=== PATIENT | female | born 1990 | race Caucasian/White ===

== ENCOUNTER 2022-10-08 15:32 | Emergency (ER) | payer BC ==
[2022-10-08] MEDS ORDERED: LIDOCAINE 2%-EPI 1:100,000 20 ML VIAL SQ STA (16:53)
[2022-10-08] MEDS ORDERED: DIPH,PERTUS(ACELL)TETVAC-LF 0.5 ML VIAL IM ONE (16:53)
--- NOTE | 2022-10-08 18:13 | ED ---
General Adult HPI - General Chief complaint: Wound/Laceration Stated complaint: Right Leg Laceration Time Seen by Provider: 10/08/22 16:38 Source: patient, RN notes reviewed Mode of arrival: ambulatory Limitations: no limitations - History of Present Illness Initial comments: 32 year old female presents to the emergency department with chief complaint of right thigh laceration. She states that she fell today on the fire pit in her backyard. She states that she has been able to bear weight on her right leg appropriately. She does no know when her last tetanus shot was. She denies numbness, tingling in extremity. - Related Data Previous Rx's Medication Instructions Recorded Ibuprofen [Motrin] 600 mg PO Q6HR PRN #40 day 09/02/15 Cephalexin [Keflex] 500 mg PO Q6HR #28 cap 10/08/22 Ibuprofen [Motrin] 800 mg PO Q8HR #30 tab 10/08/22 Allergies Allergy/AdvReac Type Severity Reaction Status Date / Time No Known Allergies Allergy Verified 10/08/22 15:36 Review of Systems ROS Statement: Those systems with pertinent positive or pertinent negative responses have been documented in the HPI. ROS Other: All systems not noted in ROS Statement are negative. Past Medical History Past Medical History: No Reported History History of Any Multi-Drug Resistant Organisms: None Reported Additional Past Surgical History / Comment(s): left hand Past Psychological History: No Psychological Hx Reported Smoking Status: Vaper Past Alcohol Use History: Occasional Past Drug Use History: None Reported General Exam Limitations: no limitations General appearance: alert, in no apparent distress Head exam: Present: atraumatic, normocephalic, normal inspection Eye exam: Present: normal appearance, PERRL, EOMI. Absent: scleral icterus, conjunctival injection, periorbital swelling ENT exam: Present: normal exam, mucous membranes moist Neck exam: Present: normal inspection. Absent: tenderness, meningismus, lymphadenopathy Respiratory exam: Present: normal lung sounds bilaterally. Absent: respiratory distress, wheezes, rales, rhonchi, stridor Cardiovascular Exam: Present: regular rate, normal rhythm, normal heart sounds. Absent: systolic murmur, diastolic murmur, rubs, gallop, clicks Extremities exam: Present: full ROM, normal capillary refill, other (laceration to right thigh ). Absent: tenderness, pedal edema, joint swelling, calf tenderness Back exam: Present: normal inspection Neurological exam: Present: alert, oriented X3 Psychiatric exam: Present: normal affect, normal mood Skin exam: Present: warm, dry, normal color, other (laceration to right thigh ). Absent: rash Course Vital Signs 10/08/22 10/08/22 15:34 18:39 Temperature 98.4 F 98 F Pulse Rate 118 H 90 Respiratory 22 18 Rate Blood Pressure 129/68 122/80 O2 Sat by Pulse 96 100 Oximetry Procedures - Laceration Laceration #1 Consent Obtained: verbal consent Indication: laceration Site: lower extremity Size (cm): 5 Description: linear Depth: simple, single layer Anesthetic Used: lidocaine 2%, with epi Anesthesia Technique: local infiltration Pre-repair: wound explored, irrigated extensively Type of Sutures: vicryl, other (monofilament) Size of Sutures: 5-0 Number of Sutures: 11 Technique: simple, interrupted Patient Tolerated Procedure: well, no complications Laceration #2 Consent Obtained: verbal consent Indication: laceration Size (cm): 1 Description: linear Depth: simple, single layer Anesthetic Used: lidocaine 2%, with epi Anesthesia Technique: local infiltration Pre-repair: wound explored, irrigated extensively Type of Sutures: vicryl, other Size of Sutures: 5-0 Number of Sutures: 2 Technique: simple, interrupted Patient Tolerated Procedure: well, no complications Medical Decision Making - Medical Decision Making Was pt. sent in by a medical professional or institution ([facility], [facility], urgent c are, hospital, or long-term...) When possible be specific @ -No Did you speak to anyone other than the patient for history (EMS, parent, family, police, friend...)? What history was obtained from this source @ -No Did you review nursing and triage notes (agree or disagree)? Why? @ -I reviewed and agree with nursing and triage notes Were old charts reviewed (outside hosp., previous admission, EMS record, old EKG, old radiological studies, urgent care reports/EKG's, long-term records)? Report findings @ -No old charts were reviewed Differential Diagnosis (chest pain, altered mental status, abdominal pain women, abdominal pain men, vaginal bleeding, weakness, fever, dyspnea, syncope, headache, dizziness, GI bleed, back pain, seizure, CVA, palpatations, mental health, musculoskeletal)? @ -laceration, abrasion, foreign body, fracture, this list is not all-inclusive EKG interpreted by me (3pts min.). @ -none X-rays interpreted by me (1pt min.). @ -None done CT interpreted by me (1pt min.). @ -None done U/S interpreted by me (1pt. min.). @ -None done What testing was considered but not performed or refused? (CT, X-rays, U/S, labs)? Why? @ -None What meds were considered but not given or refused? Why? @ -None Did you discuss the management of the patient with other professionals (professionals i.e. , PA, [facility], lab, RT, psych nurse, social studies department chair, transportation solutions manager, t eacher, dispatch officer, lining caser)? Give summary @ -No Was smoking cessation discussed for >3mins.? @ -No Was critical care preformed (if so, how long)? @ -No Were there social determinants of health that impacted care today? How? (Homelessness, low income, unemployed, alcoholism, drug addiction, transportation, low edu. Level, literacy, decrease access to med. care, longterm, rehab)? @ -No Was there de-escalation of care discussed even if they declined (Discuss DNR or withdrawal of care, Hospice)? DNR status @ -No What co-morbidities impacted this encounter? (DM, HTN, Smoking, COPD, CAD, Cancer, CVA, ARF, Chemo, Hep., AIDS, mental health diagnosis, sleep apnea, morbid obesity)? @ -None Was patient admitted / discharged? Hospital course, mention meds given and [place], prescriptions, significant lab abnormalities, going to OR and other pertinent info. @ -Discharged. She presented to emergency department chief complaint of laceration on her right thigh. She states that she fell earlier onto a fire patient believes that it pinched her leg. She is unaware of the date of her last tetanus shot this will be updated today. Laceration was irrigated and repaired. Patient was advised to have sutures removed in about 10 days. Patient presented prescription for Keflex and advised to take to completion. Patient stable at time of discharge. Case discussed my attending, Dr. Nuñez. Undiagnosed new problem with uncertain prognosis? @ -No Drug Therapy requiring intensive monitoring for toxicity (Heparin, Nitro, Insulin, Cardizem)? @ -No Were any procedures done? @ -No Diagnosis/symptom? @ -laceration Acute, or Chronic, or Acute on Chronic? @ -acute Uncomplicated (without systemic symptoms) or Complicated (systemic symptoms)? @ -uncomplicated Side effects of treatment? @ -No Exacerbation, Progression, or Severe Exacerbation? @ -No Poses a threat to life or bodily function? How? (Chest pain, [place], OR, pneumonia, PE, COPD, DKA, ARF, appy, cholecystitis, CVA, Diverticulitis, Homicidal, Suicidal, threat to staff... and all critical care pts) @ -No Disposition Clinical Impression: Laceration Disposition: HOME SELF-CARE Condition: Serious Instructions (If sedation given, give patient instructions): Care For Your Stitches (ED) Additional Instructions: Please have sutures removed in around 10 days. Take antibiotics to completion. Return to the emergency department for new or worsening symptoms. Prescriptions: Cephalexin [Keflex] 500 mg PO Q6HR #28 cap Ibuprofen [Motrin] 800 mg PO Q8HR #30 tab Is patient prescribed a controlled substance at d/c from ED?: No Referrals: None,Stated [Primary Care Provider] - 1-2 days Time of Disposition: 18:14
[2022-10-08 18:41] VITALS: BP 122/80; PULSE 90; RESP 18; TEMP 98
== END 2022-10-08 18:41 | disposition home or self-care (01) ==
LOC: EC 15:32
DX: S71.111A Laceration without foreign body, right thigh, initial encounter (principal); F17.290 Nicotine dependence, other tobacco product, uncomplicated; Z23 Encounter for immunization; X03.0XXA Exposure to flames in controlled fire, not in building or structure, initial encounter
CPT/HCPCS: 12002; 90471; 90715; 99282